=== PATIENT | female | born 1985 | race Caucasian/White ===

== ENCOUNTER 2019-05-28 21:12 | Emergency (ER) | payer OTHER, MEDICAID, SELFPAY ==
[2019-05-28 21:28] VITALS: BP 144/103; PULSE 76; RESP 18; TEMP 36.5; O2SAT 99; BMI 32.1
[2019-05-28 22:16] VITALS: BP 130/64; PULSE 71; RESP 17; O2SAT 99
--- NOTE | 2019-05-28 22:54 | ED_ITS ---
HPI - GI Bleed General Chief complaint: GI Bleed Stated complaint: BLOOD IN STOOL Time Seen by Provider: 05/28/19 21:50 Source: patient Mode of arrival: Ambulatory Limitations: no limitations History of Present Illness HPI Narrative: Patient comes emergency department complaining of rectal bleeding the last 4 days. She states every time she sits down the toilet, she notices blood drops coming out of her anal area. She states this happens even when she is urinating, and any time she relaxes her anal area while sitting on the toilet. She denies any blood on her underwear in between. Patient states she has diarrhea recently. She states she has a history of hemorrhoids previously, but that the bleeding usually stops within a day or 2. Patient denies anal rectal pain or abdominal pain. no nausea vomiting. No fevers. Related Data Allergies Allergy/AdvReac Type Severity Reaction Status Date / Time No Known Drug Allergies Allergy Verified 05/28/19 21:33 Review of Systems Constitutional Constitutional: Denies chills, Denies fatigue, Denies fever(s), Denies frequent falls, Denies lethargy and Denies weakness Eyes Eyes: Denies change in vision, Denies eye discharge, Denies irritation and Denies loss of vision ENT Ears, Nose, Mouth, and Throat: Denies change in voice, Denies dizziness, Denies neck pain, Denies sore throat and Denies throat swelling Cardiovascular Cardiovascular: Denies chest pain, Denies irregular heart rhythm, Denies lightheadedness, Denies palpitations, Denies dyspnea, Denies dyspnea on exertion and Denies orthopnea Respiratory Respiratory: Denies cough, Denies dyspnea, Denies dyspnea on exertion and Denies wheezing Gastrointestinal Gastrointestinal: Denies abdominal pain, Denies change in bowel habits, Denies diarrhea, Denies nausea and Denies vomiting Comments: Rectal bleeding Genitourinary Genitourinary: Denies hematuria, Denies flank pain, Denies urinary incontinence and Denies urinary urgency Musculoskeletal Musculoskeletal: Denies back pain, Denies muscle weakness, Denies neck pain, Denies numbness and Denies tingling Integumentary/Breasts Skin/Breast: Denies pruritus, Denies erythema, Denies rash and Denies wounds Neurologic Neurologic: Denies behavioral changes, Denies confusion, Denies dizziness, Denies frequent falls, Denies loss of vision, Denies numbness, Denies tingling and Denies weakness Psychiatric Psychiatric: Denies anxiety, Denies behavioral changes, Denies confusion, Denies depression, Denies homicidal ideation and Denies suicidal ideation Endocrine Endocrine: Denies fatigue, Denies flushing and Denies palpitations Hematologic/Lymphatic Hematologic/Lymphatic: Denies easy bruising Allergic/Immunologic Allergic/Immunologic: Denies urticaria, Denies throat swelling and Denies wheezing Patient History Medical History Healthy adult (Acute) Surgical History No pertinent past surgical history (Acute) Social History Smoking Status: Former smoker alcohol intake frequency: 3 or more drinks per day Substance Use Type: marijuana Exam Initial Vital Signs Initial Vital Signs: Vital Signs Temperature 97.7 F 05/28/19 21:28 Pulse Rate 76 05/28/19 21:28 Respiratory Rate 18 05/28/19 21:28 Blood Pressure 144/103 H 05/28/19 21:28 Pulse Oximetry 99 05/28/19 21:28 Const General: cooperative and well developed Nutritional Appearance: well nourished Orientation: alert, awake, oriented x3 and not confused [facility] Head: normocephalic and atraumatic Ears: external ears normal and TM's normal bilaterally Nose: external nose normal and No nasal discharge Face and sinus: sinuses nontender, face symmetric, no sinus tenderness and No dry mucous membranes Mouth: oral mucosae normal and moist mucous membranes Teeth and gingiva: dentition normal Throat: tonsils normal and uvula midline Eyes General: appearance normal, both eyes and all related structures Eyelids: eyelids normal Conjunctivae: conjunctivae normal Sclera: sclerae normal Pupils: PERRL EOM: EOM intact bilaterally Neck Neck: normal visual inspection, trachea midline, No lymphadenopathy, No midline deformity and No JVD Lymphatic: No lymphedema Chest Chest: normal inspection of the chest Resp Effort & Inspection: normal respiratory effort, able to speak in complete sentences, no respiratory distress and no use of accessory muscles Auscultation: clear to auscultation bilaterally, no rales, no rhonchi and no wheezes Cardio Rate: regular rate Rhythm: regular rhythm Heart Sounds: no click, no gallops, no murmurs and no rubs Pulses: normal peripheral pulses GI Inspection: non-distended Palpation: soft, no hepatosplenomegaly, No guarding, No pulsatile mass and No tender Rectal Exam: normal sphincter tone, No abnormal stool, No fissure and No tenderness Other: Patient has a mild amount of bloody residue around her anus. No masses noted on digital exam. Minimal blood on glove after digital exam. No external hemorrhoids. Back/Spine/Pelvis Back: No CVA tenderness Cervical Spine: cervical ROM normal and No pain with cervical ROM Thoracic/Lumbar Spine: thoracic and lumbar spine normal to inspection Skin General: no rashes or lesions noted, No jaundice and No petechiae Neuro General: alert, oriented x3, gait normal and no focal motor deficits Speech: speech normal Extrem General: full ROM, no clubbing, cyanosis or edema, no pedal edema and no calf tenderness Psych Appearance: well kempt Mental Status: mental status grossly normal Attitude: cooperative Thought Content: normal and suicidality Judgment: judgment good Course Course Course Narrative: The patient's GI bleeding was quite minor, and given the dripping with sitting on the toilet, I suspected an internal hemorrhoid most likely. However, the digital exam did not reveal gross blood, and I felt it likely that there is not ongoing bleeding in between visits to the toilet. We did spend quite a bit of time discussing GI bleeding and home management of hemorrhoids with topical ointments and suppositories. We have also discussed potential follow-up with surgery for scope and to discuss further management the hemorrhoids. We have discussed the usual indications for return to the emergenc y department. No emergent condition has been identified at this time. Vital Signs Vital signs: Vital Signs - 8 hr 05/28/19 21:28 05/28/19 22:16 Temperature 97.7 F Pulse Rate 76 71 Respiratory Rate 18 17 Blood Pressure 144/103 H Blood Pressure [Right Arm] 130/64 Pulse Oximetry 99 99 MDM - GI Bleed Medical Records Attestation: I reviewed the patient's medical records. Discharge Plan Departure Patient Disposition: Home Clinical Impression: Hemorrhoids Qualifiers: Hemorrhoid type: unspecified Qualified Code(s): K64.9 - Unspecified hemorrhoids Discharge Date/Time: 05/28/19 22:57 Instructions: DI for Hemorrhoids Referrals: [facility] [Provider Group]
== END 2019-05-28 22:57 | disposition home or self-care (01) ==
PROVIDERS: Emergency Provider Emergency Medicine
DX: K64.9 Unspecified hemorrhoids (principal)
CPT/HCPCS: 99282

== ENCOUNTER → 2020-06-30 12:03 | Outpatient (CLI) | payer OTHER, MEDICAID, SELFPAY ==
--- NOTE | 2020-06-30 12:05 | DI.RAD.S_ITS ---
PROCEDURE: XR CHEST 2V INDICATIONS: short of breath TECHNIQUE: 2 views of the chest were acquired. COMPARISON: None. FINDINGS: Surgical changes and devices: None. Lungs and pleura: Lungs are clear. No pleural effusions or pneumothorax. Mediastinum: Mediastinal contours are normal. Heart size is normal. Bones and chest wall: No suspicious bony abnormalities. Soft tissues appear unremarkable. IMPRESSION: Normal for age, source of current shortness of breath symptoms is not seen. Dictated by: Delvis Rinaldi M.D. on 06/30/2020 at 12:23 Approved by: Delvis Rinaldi M.D. on 06/30/2020 at 12:23
== END ==
PROVIDERS: PCP Registered Nurse; Referring Provider Registered Nurse; Visit Provider Registered Nurse
DX: R06.02 Shortness of breath (principal); J45.909 Unspecified asthma, uncomplicated
CPT/HCPCS: 71046

== ENCOUNTER → 2020-07-07 13:07 | Outpatient (CLI) | payer OTHER, MEDICAID, SELFPAY ==
--- NOTE | 2020-07-07 13:09 | DI.US.S_ITS ---
PROCEDURE: US PELVIC COMPLETE INDICATIONS: PAIN; HISTORY CYSTS TECHNIQUE: Real-time scanning was performed of the pelvic organs, with image documentation. Additional endovaginal scanning was necessary due to incomplete visualization of the adnexal and endometrial structures by transabdominal scanning. COMPARISON: None. FINDINGS: Transabdominal scanning: Limited scanning through the kidneys shows no hydronephrosis. No pathologic free abdominal or pelvic fluid. Endovaginal scanning: Uterus: Uterus is normal in size at 8.4 x 4.3 x 6.2 cm. The endometrium measures 8.5 mm in combined thickness. Ovaries: Right ovary measures 2.5 x 1.3 x 1.1 cm and the left ovary measures 3.8 x 1.7 x 1.7 cm. 2 small complex left ovarian cyst, largest measuring up to 1.6 cm. IMPRESSION: 2 small complex, likely hemorrhagic left ovarian cysts with the largest measuring up to 1.6 cm. Dictated by: Myles Cabrera [facility] Interpreted: Eliceo Villaseñor MD on 07/07/2020 at 13:50 Approved by: Eliceo Villaseñor M.D. on 07/07/2020 at 15:09
== END ==
PROVIDERS: PCP Registered Nurse; Referring Provider Obstetrics & Gynecology; Visit Provider Obstetrics & Gynecology
DX: R10.2 Pelvic and perineal pain (principal); N83.292 Other ovarian cyst, left side
CPT/HCPCS: 76830; 76856

== ENCOUNTER → 2021-10-16 14:51 | Outpatient (CLI) | payer OTHER, MEDICAID, SELFPAY ==
[2021-10-16 15:28] LABS: Add Manual Diff / Slide Review NO; Basophils Absolute Auto 0 /uL (0-100); Basophils Percent Auto 0.5 % (0-2); Eosinophils Absolute Auto 200 /uL (0-450); Eosinophils Percent Auto 2.2 % (2-4); Hematocrit 38.1 % (36-46); Hemoglobin 13.2 g/dL (12.0-16.0); Lymphocytes Absolute Auto 2100 /uL (1100-4500); Lymphocytes Percent Auto 31.3 % (25-40); Mean Corpuscular HGB Conc 34.6 % (30-36); Mean Corpuscular Hemoglobin 31.4 PG (26-34); Mean Corpuscular Volume 90.8 fL (80-100); Monocytes Absolute Auto 300 /uL (0-900); Monocytes Percent Auto 4.8 % (3-14); Neutrophils Absolute Auto 4200 /uL (1500-7000); Neutrophils Percent Auto 61.2 % (50-75); Platelet Count 267 X10^3/uL (150-400); Red Blood Cell Count 4.19 X10^6/uL (4.0-5.2); Red Cell Distribution Width 12.6 % (11.6-14.8); White Blood Cell Count 6.9 X10^3/uL (4.5-11.0)
[2021-10-16 16:36] LABS: Alanine Aminotransferase 43 IU/L (<35); Albumin 4.4 g/dL (3.5-5.0); Albumin Globulin Ratio 1.6 (1.0-2.8); Alkaline Phosphatase 49 U/L (38-126); Aspartate Aminotransferase 36 IU/L (14-36); BUN Creatinine Ratio 31.1 (6-22); Bilirubin Total 0.4 mg/dL (0.2-1.3); Blood Urea Nitrogen 19 mg/dL (7-17); Calcium 9.4 mg/dL (8.4-10.2); Carbon Dioxide 28 mmol/L (22-32); Chloride 103 mmol/L (98-107); Cholesterol 197 mg/dL (140-199); Estimated Glomerular Filt Rate > 60.0 mL/min (>60); Globulin 2.8 g/dL (1.7-4.1); Glucose 93 mg/dL (70-100); HDL Cholesterol 56 mg/dL (40-60); HEMOLYSIS < 15 (0-50); LDL Cholesterol Calculated 115 mg/dL (<100); Potassium 4.4 mmol/L (3.4-5.1); Sodium 137 mmol/L (137-145); Total Protein 7.2 g/dL (6.3-8.2); Triglycerides 132 mg/dL (35-150)
== END ==
PROVIDERS: PCP Family Medicine; Referring Provider Family Medicine; Visit Provider Family Medicine
DX: Z13.220 Encounter for screening for lipoid disorders (principal); Z13.228 Encounter for screening for other metabolic disorders
CPT/HCPCS: 36415; 80053; 80061; 85025

== ENCOUNTER 2022-02-16 10:31 | Emergency (ER) | payer OTHER, MEDICAID, SELFPAY ==
[2022-02-16] VITALS (7 sets, daily range): BP systolic 130–143; BP diastolic 70–79; PULSE 81–94; RESP 18–20; TEMP 37.7; O2SAT 98–100; BMI 33.6
[2022-02-16] MEDS: SODIUM CHLORIDE 0.9% 1,000 ML 1000 ML IV (11:15)
[2022-02-16] MEDS: ONDANSETRON 4 MG/2 ML INJ IV (11:15)
--- NOTE | 2022-02-16 11:25 | PC.NURSE ---
Pt reports generalized body aches, N&V, diarrhea, cold sweats, decreased appetite and generally feeling really bad for the past 36 hours. Pt denies any SOB, or chest pain. Pt denies any recent travel or sick contacts. Pt reports decreased sleep due to illness. Pt reports taking ibuprofen and dayquil with no relief. Daughter at bedside. Call light within reach. Encouraged to call for any needs.
[2022-02-16 11:30] LABS: Add Manual Diff / Slide Review NO; Basophils Absolute Auto 0 /uL (0-100); Basophils Percent Auto 0.3 % (0-2); Eosinophils Absolute Auto 0 /uL (0-450); Eosinophils Percent Auto 0.4 % (2-4); Hematocrit 36.2 % (36-46); Hemoglobin 12.6 g/dL (12.0-16.0); Lymphocytes Absolute Auto 200 /uL (1100-4500); Lymphocytes Percent Auto 4.9 % (25-40); Mean Corpuscular HGB Conc 34.9 % (30-36); Mean Corpuscular Hemoglobin 31.3 PG (26-34); Mean Corpuscular Volume 89.5 fL (80-100); Monocytes Absolute Auto 300 /uL (0-900); Monocytes Percent Auto 5.4 % (3-14); Neutrophils Absolute Auto 4100 /uL (1500-7000); Platelet Count 174 X10^3/uL (150-400); Red Blood Cell Count 4.04 X10^6/uL (4.0-5.2); Red Cell Distribution Width 12.4 % (11.6-14.8); White Blood Cell Count 4.6 X10^3/uL (4.5-11.0)
[2022-02-16 11:37] LABS: COVID19 -Nasal RAPID POSITIVE (Negative)
[2022-02-16 11:51] LABS: Alanine Aminotransferase 46 IU/L (<35); Albumin 4.5 g/dL (3.5-5.0); Albumin Globulin Ratio 1.5 (1.0-2.8); Alkaline Phosphatase 57 U/L (38-126); Aspartate Aminotransferase 47 IU/L (14-36); BUN Creatinine Ratio 17.9 (6-22); Bilirubin Total 0.5 mg/dL (0.2-1.3); Blood Urea Nitrogen 12 mg/dL (7-17); Calcium 9.1 mg/dL (8.4-10.2); Carbon Dioxide 25 mmol/L (22-32); Chloride 102 mmol/L (98-107); Estimated Glomerular Filt Rate > 60 mL/min (>60); Glucose 99 mg/dL (70-100); HEMOLYSIS < 15 (0-50); Lipase 46 U/L (23-300); Potassium 3.7 mmol/L (3.4-5.1); Sodium 134 mmol/L (137-145); Total Protein 7.5 g/dL (6.3-8.2)
[2022-02-16 11:54] LABS: Prothrombin Time 10.9 SECONDS (10.1-12.7)
[2022-02-16 11:57] LABS: PTT Partial Thromboplastin Tim 33 SECONDS (26.4-36.2)
[2022-02-16] MEDS: KETOROLAC 30 MG/ML VIAL 15 MG IV (11:58)
[2022-02-16] MEDS: ACETAMINOPHEN 325 MG TABLET 975 MG PO (11:58)
[2022-02-16] MEDS: LOPERAMIDE 2 MG CAPSULE 4 MG PO (11:58)
--- NOTE | 2022-02-16 14:19 | ED_ITS ---
HPI - Nausea/Vomiting/Diarrhea General Chief complaint: Nausea/Vomiting/Diarrhea Stated complaint: feel like im dying seeing spots, N/V/D, back ach Time Seen by Provider: 02/16/22 11:39 Source: patient Mode of arrival: Ambulatory History of Present Illness HPI Narrative: This 36-year-old non COVID immunized patient comes to the ED with 36 hours of feeling very poorly. She says she has had vomiting and diarrhea which are both nonbloody. She reports fever but denies shortness of breath. She says she has diffuse severe muscle aches throughout her body. She denies chest pain and abdominal pain. She denies dysuria. She denies risk. Related Data Previous Rx's Medication Instructions Recorded albuterol sulfate 90 mcg/actuation 2 puff inhalation Q4-6H PRN 10/16/21 aerosol inhaler shortness of breath or wheezing 90 days #18 grams nirmatrelvir 300 mg (150 mg x See Rx Instructions PO .COMPLEX 02/16/22 2)-ritonavir 100 mg tablet (EUA) #30 tabs (Paxlovid 300 mg () ondansetron 4 mg disintegrating 4 mg PO Q6H #10 tabs 02/16/22 tablet Allergies Allergy/AdvReac Type Severity Reaction Status Date / Time banana Allergy Severe itchy Verified 10/16/21 13:47 mouth and throat cat dander Allergy Mild Verified 10/16/21 13:47 dog dander Allergy Mild Verified 10/16/21 13:47 Review of Systems Review of Systems Narrative: Complete review of systems is negative other than as noted in the HPI Patient History Medical History Healthy adult Vaginal delivery Surgical History No pertinent past surgical history Social History Smoking Status: Former smoker Tobacco: How many years used: 21 quit status: considering quitting alcohol intake: current (5-6 drinks per day hard alcohol ) substance use type: does not use Smoking Status: Former smoker alcohol intake frequency: 3 or more drinks per day Substance Use Type: marijuana Exam Narrative Exam Narrative: GENERAL: Alert, laying on the gurney shaking. She speaks in a normal voice. HEAD: Atraumatic. Normocephalic. EYES: Sclera are clear without icterus. Extraocular movements are full. ENT: No rhinorrhea. Oropharynx is moist. Mouth exam is benign. NECK: Supple. Full range of motion. CARDIOVASCULAR: Normal rate and rhythm without murmur gallop or rub. RESPIRATORY: Clear to auscultation. Breath sounds equal bilaterally. No wheezes, rales, or rhonchi. GASTROINTESTINAL: Abdomen soft, non-tender, nondistended. EXTREMITIES: No edema, full range of motion. No obvious trauma. BACK: Normal inspection, no CVA tenderness. NEURO: Nonfocal examination, normal speech, normal gait. SKIN: No rash or erythema of visible areas PSYCH: Normally oriented. Normal range of affect. Appropriate behavior Initial Vital Signs Initial Vital Signs: Vital Signs Blood Pressure 134/72 02/16/22 10:47 Course Orders Ordered: ED Orders 02/16/22 10:55 COVID19 -Nasal RAPID/Pre-Proc Stat 02/16/22 11:13 Complete Blood Count AUTO DIFF Stat Comprehensive Metabolic Panel Stat Lipase Stat Partial Thromboplastin Time Stat Prothrombin Time INR Stat Discontinued Medications Acetaminophen (Acetaminophen 325 Mg Tablet) 975 mg PO NOW ONE Stop: 02/16/22 11:46 Last Admin: 02/16/22 11:58 Dose: 975 mg Documented By: SB Sodium Chloride (Normal Saline 0.9%) 1,000 mls @ 1,000 mls/hr IV BOLUS ONE Stop: 02/16/22 12:01 Last Infusion: 02/16/22 13:22 Dose: 0 mls/hr Documented By: Admin: 02/16/22 11:15 Dose: 1,000 mls/hr Documented By: BS Sodium Chloride (Normal Saline 0.9%) 1,000 mls @ 1,000 mls/hr IV BOLUS ONE Stop: 02/16/22 12:44 Last Admin: 02/16/22 12:01 Dose: Not Given Documented By: KLS Ketorolac Tromethamine (Ketorolac 30 Mg/Ml Vial) 15 mg IV NOW ONE Stop: 02/16/22 11:46 Last Admin: 02/16/22 11:58 Dose: 15 mg Documented By: SB Loperamide HCl (Loperamide 2 Mg Capsule) 4 mg PO NOW ONE Stop: 02/16/22 11:46 Last Admin: 02/16/22 11:58 Dose: 4 mg Documented By: SARAH Ondansetron HCl (Ondansetron 4 Mg/2 Ml Inj) 4 mg IV NOW ONE Stop: 02/16/22 11:01 Last Admin: 02/16/22 11:15 Dose: 4 mg Documented By: BS Vital Signs Vital signs: Vital Signs - 8 hr 02/16/22 10:58 02/16/22 10:47 02/16/22 10:53 Temperature 99.9 F H Pulse Rate 94 H 92 H Respiratory Rate 18 Blood Pressure 134/72 134/72 Pulse Oximetry 100 100 Oxygen Delivery Method Room Air 02/16/22 11:04 02/16/22 11:05 02/16/22 11:05 Temperature Pulse Rate 89 89 Respiratory Rate Blood Pressure 130/74 Pulse Oximetry 98 98 Oxygen Delivery Method 02/16/22 12:06 02/16/22 12:06 Temperature Pulse Rate 93 H Respiratory Rate Blood Pressure 143/70 H Pulse Oximetry 100 Oxygen Delivery Method MDM - Nausea/Vomiting/Diarrhea Lab Data Result diagrams: 02/16/22 11:13 02/16/22 11:13 Labs: Lab Results 02/16/22 02/16/22 02/16/22 Range/Units 10:55 11:13 11:13 WBC 4.6 (4.5-11.0) X10^3/uL RBC 4.04 (4.0-5.2) X10^6/uL Hgb 12.6 (12.0-16.0) g/dL Hct 36.2 (36-46) % MCV 89.5 (80-100) fL MCH 31.3 (26-34) PG MCHC 34.9 (30-36) % RDW 12.4 (11.6-14.8) % Plt Count 174 (150-400) X10^3/uL Neut % (Auto) 89.0 H (50-75) % Lymph % (Auto) 4.9 L (25-40) % [place] % (Auto) 5.4 (3-14) % Eos % (Auto) 0.4 L (2-4) % Baso % (Auto) 0.3 (0-2) % Neut # (Auto) 4100 (8525-5745) /uL Lymph # (Auto) 200 L (0579-8766) /uL [place] # (Auto) 300 (0-900) /uL Eos # (Auto) 0 (0-450) /uL Baso # (Auto) 0 (0-100) /uL PT (10.1-12.7) SECONDS INR (0.9-1.3) APTT (26.4-36.2) SECONDS Sodium 134 L (137-145) mmol/L Potassium 3.7 (3.4-5.1) mmol/L Chloride 102 (98-107) mmol/L Carbon Dioxide 25 (22-32) mmol/L BUN 12 (7-17) mg/dL Creatinine 0.67 (0.52-1.04) mg/dL Estimated GFR > 60 (>60) mL/min BUN/Creatinine Ratio 17.9 (6-22) Glucose 99 (70-100) mg/dL Calcium 9.1 (8.4-10.2) mg/dL Total Bilirubin 0.5 (0.2-1.3) mg/dL AST 47 H (14-36) IU/L ALT 46 H (<35) IU/L Alkaline Phosphatase 57 (38-126) U/L Total Protein 7.5 (6.3-8.2) g/dL Albumin 4.5 (3.5-5.0) g/dL Globulin 3.0 (1.7-4.1) g/dL Albumin/Globulin Ratio 1.5 (1.0-2.8) Lipase 46 (23-300) U/L SARS-CoV-2 (PCR) Positive H (Negative) 02/16/22 Range/Units 11:13 WBC (4.5-11.0) X10^3/uL RBC (4.0-5.2) X10^6/uL Hgb (12.0-16.0) g/dL Hct (36-46) % MCV (80-100) fL MCH (26-34) PG MCHC (30-36) % RDW (11.6-14.8) % Plt Count (150-400) X10^3/uL Neut % (Auto) (50-75) % Lymph % (Auto) (25-40) % [place] % (Auto) (3-14) % Eos % (Auto) (2-4) % Baso % (Auto) (0-2) % Neut # (Auto) (0653-5162) /uL Lymph # (Auto) (3231-7088) /uL [place] # (Auto) (0-900) /uL Eos # (Auto) (0-450) /uL Baso # (Auto) (0-100) /uL PT 10.9 (10.1-12.7) SECONDS INR 1.0 (0.9-1.3) APTT 33 (26.4-36.2) SECONDS Sodium (137-145) mmol/L Potassium (3.4-5.1) mmol/L Chloride (98-107) mmol/L Carbon Dioxide (22-32) mmol/L BUN (7-17) mg/dL Creatinine (0.52-1.04) mg/dL Estimated GFR (>60) mL/min BUN/Creatinine Ratio (6-22) Glucose (70-100) mg/dL Calcium (8.4-10.2) mg/dL Total Bilirubin (0.2-1.3) mg/dL AST (14-36) IU/L ALT (<35) IU/L Alkaline Phosphatase (38-126) U/L Total Protein (6.3-8.2) g/dL Albumin (3.5-5.0) g/dL Globulin (1.7-4.1) g/dL Albumin/Globulin Ratio (1.0-2.8) Lipase (23-300) U/L SARS-CoV-2 (PCR) (Negative) Urine Dip Bedside Urine Glucose Negative Bedside Urine Bilirubin - Negative Bedside Urine Ketone - Negative Urine Specific [place] 1.015 Bedside Urine Occult Blood - Negative Bedside Urine pH 7.5 Bedside Urine Protein - Negative Bedside Urine Urobilinogen - Negative Bedside Urine Nitrite - Negative Bedside Urine Leukocytes - Negative Esterase MDM Narrative Medical decision making narrative: Patient appears reasonably well after symptomatic therapies are given. Recommend outpatient antiviral therapy as prescribed. Symptomatic therapies are also prescribed. I do not suspect a dangerous cause for her symptoms and I do not think she requires further workup or hospitalization at this time. Discharge Plan Departure Patient Disposition: Home Clinical Impression: COVID-19 Activity Restrictions/Additional Instructions: I am sorry that you have a COVID-19 infection. I recommend fluids, rest, ibuprofen and Tylenol regularly. I also recommend Paxlovid that has been sent to the local pharmacy. Return to the ED for worsening symptoms, especially increasing shortness of breath or if you think you are getting dehydrated from her diarrhea and vomiting. I will also prescribe anti nausea medication free to take as needed. You should take loperamide which is an [id number] product to help with diarrhea. I still recommend COVID immunization. Prescriptions: New Paxlovid (EUA) 150 mg x 2- 100 mg tablet See Rx Instructions .ROUTE .COMPLEX Qty: 30 0RF Rx Instructions: take TWO 150 mg tablets of nirmatrelvir with ONE 100 mg tablet of ritonavir twice daily for 5 days [employer] ondansetron 4 mg tablet,disintegrating 4 mg PO Q6H Qty: 10 1RF No Action albuterol sulfate 90 mcg/actuation HFA aerosol inhaler 2 puff inhalation Q4-6H PRN (Reason: shortness of breath or wheezing) 90 Days Qty: 18 3RF Referrals: Lorena Anaya MD [Primary Care Provider] -
== END 2022-02-16 14:29 | disposition home or self-care (01) ==
PROVIDERS: Emergency Provider Family Medicine Addiction Medicine; PCP Family Medicine
DX: U07.1 COVID-19 (principal)
CPT/HCPCS: 36415; 80053; 81003; 83690; 85025; 85610; 85730; 87635; 96361; 96374; 96375; 99284; C9803; J1885; J2405

== ENCOUNTER → 2022-04-15 09:24 | Outpatient (CLI) | payer OTHER, MEDICAID, SELFPAY ==
[2022-04-15 11:17] LABS: Urine N gonorrhoeae NOT DETECTED
[2022-04-15 12:04] LABS: Urine Chlamydia NOT DETECTED
== END ==
PROVIDERS: PCP Family Medicine; Visit Provider Registered Nurse
DX: Z11.3 Encounter for screening for infections with a predominantly sexual mode of transmission (principal)
CPT/HCPCS: 87491; 87591